=== PATIENT | female | born 1950 | race Caucasian/White ===

== ENCOUNTER 2023-10-08 22:01 | Inpatient (IN) | payer BC, MEDICARE, SELFPAY ==
[2023-10-08 19:51] VITALS: BP 105/51
[2023-10-08 19:58] LABS: % Basophils 0.2 % (0-2); % Eosinophils 0.2 % (0-6); % Immature Granulocytes 0.7 % (0-0.5); % Lymphocytes 3.4 % (20.5-51.1); % Monocytes 9.7 % (1.7-9.3); % Neutrophils 85.8 % (42.2-75.2); Absolute Basophils 0.1 10^3/uL (0-0.2); Absolute Eosinophils 0.1 10^3/uL (0-0.7); Absolute Immature Granulocytes 0.2 10^3/uL (0-0.05); Absolute Lymphocytes 0.8 10^3/uL (1.2-3.4); Absolute Monocytes 2.2 10^3/uL (0.1-0.6); Absolute Neutrophils 19.1 10^3/uL (1.4-6.5); Hematocrit 39.4 % (37.0-47.0); Hemoglobin 13.6 g/dL (12.0-16.0); Mean Corp Hgb Conc. 34.5 g/dL (33.0-37.0); Mean Corpuscular Hgb 29.2 pg (27.0-31.0); Mean Corpuscular Volume 84.5 fL (81.0-99.0); Mean Platelet Volume 9.6 fL (7.4-10.4); Nucleated Red Blood Cells % 0 %; Platelet Count 209 10^3/uL (130-400); Red Blood Cell Count 4.66 10^6/uL (4.20-5.40); Red Cell Dist. Width 13.6 % (11.5-14.5); White Blood Cell Count 22.2 10^3/uL (4.8-10.8)
[2023-10-08 19:59] LABS: Urine Albumin 1+ (Neg - Trace); Urine Bilirubin Negative (Negative); Urine Character Clear (Clear); Urine Color Yellow; Urine Glucose Trace (Negative); Urine Ketone Trace (Negative); Urine Leukocyte Trace (Negative); Urine Nitrite Negative (Negative); Urine Occult Blood 2+ (Negative); Urine Urobilinogen Negative (Neg - 1+)
[2023-10-08 20:00] VITALS: BP 107/60
[2023-10-08 20:09] LABS: Glucose - Point of Care 137 mg/dl (70-99)
[2023-10-08 20:11] LABS: Lactic Acid 1.6 mmol/L (0.7-2.0)
[2023-10-08 20:12] LABS: Urine Hyaline Cast 0-2 /LPF (0-2); Urine Mucus Many
[2023-10-08 20:13] LABS: Urine Bacteria Few (Negative)
[2023-10-08 20:15] LABS: ALT (SGPT) 35 U/L (0-35); AST (SGOT) 65 U/L (14-36); Albumin 4.3 g/dl (3.5-5.0); Alkaline Phosphatase 109 U/L (38-126); Blood Urea Nitrogen 34 mg/dl (7-17); Calcium 9.4 mg/dl (8.4-10.2); Carbon Dioxide 24 mmol/L (22-30); Chloride 107 mmol/L (98-107); Creatine Phosphokinase 949 U/L (30-135); Glucose 152 mg/dl (70-99); Potassium 3.8 mmol/L (3.5-5.1); Sodium 140 mmol/L (135-145); Total Bilirubin 0.5 mg/dl (0.2-1.3); Total Protein 6.8 g/dl (6.3-8.2)
[2023-10-08] MEDS: NSS 2000 IV (20:16)
--- NOTE | 2023-10-08 20:20 | ED.GENMED ---
History of Present Illness
General
Chief Complaint: Fall
Source: patient and spouse
Exam Limitations: none
Time Seen by Provider: 10/08/23 19:54
Nursing documentation reviewed up to this point in time: agreed with
History of Present Illness
History of Present Illness:
72-year-old female accompanied by her Dr. Stoddard, patient suffers from MS, on Copaxone, has some lower extremity weakness chronically but functions very well, drinks socially not excess, left for work around 7 AM, he returned to
work found his spouse lying supine covered in dirt ants & leaves, sunburned , possibly had been there since as early as 7 AM but likely later in the day
Possibility that she could have fallen down 3 steps unconfirmed
Here she follows simple commands opens her eyes to deep stimulation
Past History
Past History
ED Past Medical History: Other (MS) and Other (Osteoarthritis)
ED Past Surgical History: None
Social History
Tobacco: Non-smoker
Alcohol: None
Drug: None
Personal:
Living: with family
Phy Exam
Physical Exam
Physical Exam:
Physical Exam
General: Chronically ill female with decreased responsiveness
Neck: Lips are slightly dry no tongue bite
Heart: Regular
Lungs: no acute respiratory distress. clear bilaterally
Abdomen: Nontender
Neuro: Responds to painful stimuli moaning
Skin: Warm sunburn
Psychiatric: Unable to assess
Extremities: no edema.
Course
Orders/Labs/Results
Orders:
Orders
10/08/23 19:46
Electrocardiogram (*1) Urgent
Reason for Study: Other
Other Reason for Exam: fall
EKG- Treatment ONCE
10/08/23 19:47
CPK [Creatine Phosphokinase] Urgent
Complete Blood Count/With Diff Urgent
Comprehensive Metabolic Panel Urgent
TSH Urgent
Comment: ADD ON
Urinalysis Reflex To Culture Urgent
Date Specimen was Collected: 10/08/23
Time Specimen was Collected: 19:45
Urine Microscopic Reflex Cult Urgent
10/08/23 19:51
Lactic Acid Urgent
10/08/23 20:11
CT Cervical Spine W/o Iv Contr Urgent
Comment:
Reason For Exam: fall
CT Head W/o Iv Contrast Urgent
Comment:
Reason For Exam: fall
Cardiac Monitoring- Treatment ONCE
10/08/23 20:12
0.9% Sodium Chloride 1000 ml [Nss] 2,000 ml IV BOLUS
10/08/23 20:14
Add On- LAB Urgent
Tests Added?: tsh
Rectal Temp- Treatment ONCE
Abnormal Lab Results
10/08/23 10/08/23
19:47 20:08
WBC 22.2 H 10^3/uL
(4.8-10.8)
Abs Immat Gran (auto) 0.2 H 10^3/uL
(0-0.05)
Absolute Neuts (auto) 19.1 H 10^3/uL
(1.4-6.5)
Absolute Lymphs (auto) 0.8 L 10^3/uL
(1.2-3.4)
Absolute Monos (auto) 2.2 H 10^3/uL
(0.1-0.6)
Immature Gran % 0.7 H %
(0-0.5)
Neutrophils % 85.8 H %
(42.2-75.2)
Lymphocytes % 3.4 L %
(20.5-51.1)
Monocytes % 9.7 H %
(1.7-9.3)
BUN 34 H mg/dl
(7-17)
Creatinine 1.2 H mg/dL
(0.6-1.0)
Glucose 152 H mg/dl
(70-99)
AST 65 H U/L
(14-36)
Creatine Kinase 949 H U/L
(30-135)
Urine Ketones Trace A
(Negative)
Ur Occult Blood Reflex 2+ A
(Negative)
Leukocyte Esterase Rfl Trace A
(Negative)
Urine RBC 3-6 A /HPF
(0-2)
Urine Bacteria (Reflex) Few A
(Negative)
Urine Glucose Trace A
(Negative)
Urine Albumin (Reflex) 1+ A
(Neg - Trace)
POC Glucose 137 H mg/dl
(70-99)
10/08/23 19:47
10/08/23 19:47
Vital Signs
Initial and Last Documented VS:
Initial Vital Signs
Pulse Resp
97 22
10/08/23 19:48 10/08/23 19:48
Last Documented Vital Signs
Temp Pulse Resp BP Pulse Ox
99.5 F 94 18 107/60 97
10/08/23 20:14 10/08/23 20:00 10/08/23 20:00 10/08/23 20:00 10/08/23 20:00
MDM/Problems Addressed
Differential Diagnosis Includes:
Dehydration intracerebral hemorrhage toxic metabolic UTI rhabdo
MDM/Problems Addressed:
Mental status change
Chronic conditions affecting care: Neurological disorder
Acute Exacerbation and/or Progression of Chronic Illness: Neurological disorder
*EKG
Interpreted by ED Provider?: Yes
Interpretation: abnormal
Comparison EKG: no comparison EKG present
Heart Rate: 78
Rate: normal
Rhythm: sinus
Ischemia: non-specific ST changes
*Advertising Coordinator Interpretation
Rate: normal
Interpretation: normal
Heart Rate: 78
Rhythm: sinus
*Critical Care Note
Total Time (30-74mins, 75-104mins- exclusive of procedures): Not Applicable
Data Reviewed
Source: spouse
Update Note
Update Note:
Update labs noted CT noted reports pending patient is more alert from when she presented, spouse states she was nonverbal when he found her passed out on the patio, hopefully her mental status will improve with IV fluids,
ED Attending Note
-
Portions of this chart may have been created with voice recognition software.� Occasional wrong word or��sound alike� substitutions may have occurred due to the inherent limitations of voice recognition software.
Discharge Plan
Departure
Patient Disposition: Admit
Date of Disposition: 10/08/23
Time of Disposition: 21:13
Admit to: Telemetry
Presentation/result/management discussed w/ accepting MD/DO: Hospitalist
Patient with high blood pressure during this ER visit?: No
Condition: Fair
Covid-19: Not Applicable
Discharge Problem:
Rhabdomyolysis, Fall, Multiple sclerosis
Prescriptions:
No Action
cyanocobalamin (vitamin B-12) 1,000 mcg Tablet
2,000 mcg PO DAILY
baclofen 20 mg Tablet
20 mg PO HS
dalfampridine 10 mg Tablet Extended Release 12 Hr
10 mg PO BID
glatiramer [Copaxone] 40 mg/mL Syringe
40 mg SC MOWEFR
Vitamin D3 tablet
1 tab PO DAILY
calcium carbonate tablet
1 tab PO DAILY
Interventions
Interventions:
*Risk Screen - Suicide Last Done: 10/08/23 19:51
*General Assessment Last Done: 10/08/23 20:23
*Neglect/Abuse Screening Last Done: 10/08/23 19:51
ED- Fall Risk Assessment Last Done: 10/08/23 19:51
*ED COVID-19 Vaccine History Last Done: 10/08/23 19:51
ED-Musculoskeletal Assessment Last Done: 10/08/23 19:51
ED- Neurological Assessment Last Done: 10/08/23 19:51
ED-Skin Assessment Last Done: 10/08/23 19:51
Discharge Date and Time
Print Language: SERBIAN
[2023-10-08 21:06] LABS: TSH 1.76 uIU/ml (0.47-4.68)
[2023-10-08 21:11] VITALS: BP 97/57
--- NOTE | 2023-10-08 21:34 | HPS.HSE ---
Addendum entered and electronically signed by Maurilio Santiago DO 10/08/23 22:17:
Patient seen and examined independently. Agree with findings an plan as set forth by Amy Baumann PA-C.
Patient is a 72y F with PMH significant for MS who presents to ED after being 'found down' at home. History obtained from patient and her at the bedside. Patient states that she became fatigued this AM while doing some gardening. She
lie down on the ground to rest and either was unable to or did not attempt to get back up. She pulled a nearby garden cart over to shade her face. Her left the home around 7AM and returned from work this evening to find patient lying on
the ground. Patient was brought to the ED for further evaluation. No reported recent illness including fevers / chills, GI or complaints.
Ass:
Found Down
Rhabdomyolysis
TIARA
Multiple Sclerosis
Plan:
Admit for further evaluation and treatment.
IVF support overnight and follow for adequate urine output, improvement in renal function and resolution of CPK elevations.
Patient denies any pain at this time.
Monitor for any new / worsening symptoms.
Hold dalfampridine pending improvement in renal function.
Continue Copaxone.
PT / OT evaluations.
Original Note:
Family Physician
-
Family Physician: NOT KNOW UNKNOWN - PT DOES
Chief Complaint
-
Fall
History of Present Illness
Patient is a 72 y/o female past medical history of multiple sclerosis who presents with following a fall. Patient was found outside on the patio by her after he returned home from work. It is unclear how long patient was outside, but she
was last seen around 7AM when the left for work. She was noted to have sunburn on her arms and legs leading to believe she was out in the sun for several hours. Upon my evaluation patient is able to answer a few questions with
single answers, but is unable to tell me how she fell. She denies hitting her head during the event.
Medical History
Past Medical History
Past Medical History: Reports Other
Additional Past Medical History:
Multiple Sclerosis
Past Surgical History: Reports
Social History
Tobacco: Non-smoker
Alcohol: Occasional
Family History
Family History: Other (Father: ESRD; Mother: Aortic Stenosis; Sister: Multiple Sclerosis)
Allergies / Home Medications
Allergies reflects when Allergies were last updated in [facility].
Home Medications with original date entered in [facility]
Allergy/Medication List:
Allergies
Allergy/AdvReac Type Severity Reaction Status Date / Time
No Known Allergies Allergy Verified 10/08/23 20:05
Home Medications
Vitamin D3 1 tab PO DAILY 10/08/23
baclofen 20 mg tablet 20 mg PO HS 10/08/23
calcium carbonate 1 tab PO DAILY 10/08/23
cyanocobalamin (vitamin B-12) 1,000 mcg tablet 2,000 mcg PO DAILY 10/08/23
dalfampridine 10 mg tablet,extended release,12 hr 10 mg PO BID 10/08/23
glatiramer 40 mg/mL subcutaneous syringe (Copaxone) 40 mg SC MOWEFR 10/08/23
Review of Systems
-
Unable to obtain full review of systems at this time due to: Acuity
Physical Exam
Vital Signs
Vital Signs
Temp Pulse Resp BP Pulse Ox
99.5 F 88 18 97/57 96
10/08/23 20:14 10/08/23 21:00 10/08/23 21:11 10/08/23 21:11 10/08/23 21:11
Physical Exam
General: Well Developed and Well Nourished
HEENT: Other (Mucous Membranes are dry )
Respiratory: Clear and Non Labored Respirations
Cardiac: S1/S2 and Regular Rhythm
GI: Soft and Non Tender
Musculoskeletal: No Clubbing, No Cyanosis and No Edema
Skin: Other (Sunburns to bilateral arms and legs)
Neuro: Other (Answers simple questions but unable to participate in full neurologic evaluation)
Psych: Calm
Laboratory Results
-
10/08/23 19:47
10/08/23 19:47
Laboratory Results
Lactic Acid 1.6 mmol/L (0.7-2.0) 10/08/23 19:51
Total Bilirubin 0.5 mg/dl (0.2-1.3) 10/08/23 19:47
AST 65 U/L (14-36) H 10/08/23 19:47
ALT 35 U/L (0-35) 10/08/23 19:47
Alkaline Phosphatase 109 U/L (38-126) 10/08/23 19:47
Data Reviewed
-
CT Scan: Report Reviewed by me (Head CT without intracranial hemorrhage or fracture)
Lab Data: Labs Reviewed by me
Impression/Plan
-
Rhabdomyolysis with Acute Kidney Injury
-Continue IVFs
-Recheck BMP and CPK in AM
Fall, unclear cause as patient unable to provide much history
-Consult PT/OT
-Monitor on Telemetry
-Consider additional work-up once patient able to provide more history
Multiple Sclerosis
-Hold meds for now and resume when able
DVT proph: SCDs
Code Status: Full Code
[2023-10-08 22:00] VITALS: BP 109/53
[2023-10-08 22:58] VITALS: BMI 23.4
[2023-10-08 23:05] VITALS: BP 146/66
[2023-10-08] MEDS: NSS 1000 IV (23:28)
--- NOTE | 2023-10-08 23:50 | PTCARENOTE ---
Pt arrived to unit from ED and was a pullover assist from stretcher into bed. Pt is verbally arousable and AAOx1 to self. Pt's Murali updated on plan of care at bedside and assisted in answering admission questions. Pt oriented to room,
call esparza within reach. Bed alarm in place under pt. VS on admission stable, NS infusing at 100 mL/hr per order. Pt denies pain at this time.
[2023-10-09] VITALS (8 sets, daily range): BP systolic 108–142; BP diastolic 48–72; PULSE 76–80; O2SAT 95
--- NOTE | 2023-10-09 06:40 | PTCARENOTE ---
Pt did not urinate during shift. This RN bladder scanned pt for 570 mL and prompted pt to void in bed morales; pt was unable to void. House ASSISTANT BASKETBALL COACH Dipak Baker notified, order placed for bladder scan and straight cath protocol. This RN straight cathed
pt for 550 mL of clear yellow urine with a 15 [place] catheter.
[2023-10-09 07:39] LABS: Hematocrit 36.8 % (37.0-47.0); Hemoglobin 12.4 g/dL (12.0-16.0); Mean Corp Hgb Conc. 33.7 g/dL (33.0-37.0); Mean Corpuscular Hgb 29.1 pg (27.0-31.0); Mean Corpuscular Volume 86.4 fL (81.0-99.0); Red Blood Cell Count 4.26 10^6/uL (4.20-5.40); Red Cell Dist. Width 13.9 % (11.5-14.5); White Blood Cell Count 15.1 10^3/uL (4.8-10.8)
[2023-10-09 07:56] LABS: Blood Urea Nitrogen 29 mg/dl (7-17); Calcium 8.1 mg/dl (8.4-10.2); Carbon Dioxide 22 mmol/L (22-30); Chloride 110 mmol/L (98-107); Estimated Creatinine Clearance 54 ml/min; Glucose 80 mg/dl (70-99); Potassium 3.8 mmol/L (3.5-5.1); Sodium 139 mmol/L (135-145); eGFR > 60.00
[2023-10-09 08:09] LABS: Mean Platelet Volume 9.7 fL (7.4-10.4); Platelet Count 117 10^3/uL (130-400)
[2023-10-09 08:13] LABS: Creatine Phosphokinase 6230 U/L (30-135)
--- NOTE | 2023-10-09 08:50 | W.PN.HOSP.TC ---
Today's Communication/Plan
-
see bold
Assessment / Plan
Assessment / Plan
HPI: 72y F with PMH significant for MS who presents to ED after being 'found down' at home. History obtained from patient and her at the bedside. Patient states that she became fatigued this AM while doing some gardening. She lie down
on the ground to rest and either was unable to or did not attempt to get back up. She pulled a nearby garden cart over to shade her face. Her left the home around 7AM and returned from work this evening to find patient lying on the ground.
Patient was brought to the ED for further evaluation. No reported recent illness including fevers / chills, GI or complaints.
Rhabdomyolysis
-CK 6230 today, increased from 949 yesterday
-Continue IVFs, trend CK
Acute kidney injury
� Resolved with IV fluids
Fall, unclear cause as patient unable to provide much history
-Likely from weakness from multiple sclerosis
-PT rec STR, pt/spouse wishes to go home
Multiple Sclerosis
-Resume meds when able
Leukocytosis
- Patient is afebrile, no signs or symptoms of infection
�Likely reactive, trend
Thrombocytopenia
-Mild, monitor
Sunburn
-Monitor
DVT proph: SQ lovenox
Code Status: Full Code
Updated on phone 10/08
Physical Exam
General: No acute distress
HEENT: Normocephalic, Atraumatic, EOMI, MMM
Respiratory: Clear to Auscultation bilaterally
Cardiac: Normal S1/S2, Regular Rate and Rhythm
GI: Soft, Nontender, Nondistended, Normal Bowel Sounds
Extremities: No Clubbing, Cyanosis, or Edema
Left leg weakness noted
Neuro: Nonfocal/Grossly Intact
Psych: Calm, Cooperative
Derm: Patches of erythema on arms/legs/torres
Total time spent to see the patient on the floor, examine the patient, review data and lab results, discuss treatment plan with patient, nursing staff around 50 minutes.
Anticipated Discharge: 24 - 48 hours
Subjective/Interval History
-
Date of Service: October 09, 2023
Patient reports being sunburn from being in the sun yesterday. She feels better today. Her left leg weakness has improved. No fever, no vomiting.
Objective Data
-
Labs:
Laboratory Results
10/09/23
07:16
WBC 15.1 H
Hgb 12.4
Hct 36.8 L
Plt Count 117 L D
Sodium 139
Potassium 3.8
Chloride 110 H
Carbon Dioxide 22
BUN 29 H
Creatinine 0.9
Glucose 80
Calcium 8.1 L
Vital Signs:
Vital Signs
Temp Pulse Resp BP Pulse Ox
98.0 F 75 16 108/56 95
10/09/23 07:29 10/09/23 07:29 10/09/23 07:29 10/09/23 07:29 10/09/23 07:29
I&O
10/08/23 10/09/23 10/10/23
06:59 06:59 06:59
Intake Total 60 / 60 1560 / 1560
Output Total 550 / 550
Balance -490 / -490 1560 / 1560
[2023-10-09] MEDS: NSS 1000 IV ×3 (10:15→23:12)
[2023-10-09 17:00] LABS: Creatine Phosphokinase 5908 U/L (30-135)
[2023-10-09] MEDS: LOVENOX 40 MG SC (17:08)
[2023-10-09 19:32] LABS: Hepatitis C Antibody Negative (Negative)
[2023-10-10 03:18] VITALS: BP 144/64
[2023-10-10] MEDS: NSS 1000 IV ×3 (05:52→20:28)
[2023-10-10 06:52] LABS: Hematocrit 32.5 % (37.0-47.0); Hemoglobin 10.9 g/dL (12.0-16.0); Mean Corp Hgb Conc. 33.5 g/dL (33.0-37.0); Mean Corpuscular Hgb 29.1 pg (27.0-31.0); Mean Corpuscular Volume 86.9 fL (81.0-99.0); Mean Platelet Volume 10.3 fL (7.4-10.4); Platelet Count 91 10^3/uL (130-400); Red Blood Cell Count 3.74 10^6/uL (4.20-5.40); Red Cell Dist. Width 13.9 % (11.5-14.5); White Blood Cell Count 12.8 10^3/uL (4.8-10.8)
[2023-10-10 07:00] VITALS: BP 136/65
[2023-10-10 07:18] LABS: Blood Urea Nitrogen 21 mg/dl (7-17); Calcium 7.7 mg/dl (8.4-10.2); Carbon Dioxide 21 mmol/L (22-30); Chloride 114 mmol/L (98-107); Estimated Creatinine Clearance 70 ml/min; Glucose 82 mg/dl (70-99); Sodium 137 mmol/L (135-145); eGFR > 60.00
[2023-10-10 07:43] LABS: Creatine Phosphokinase 4267 U/L (30-135)
--- NOTE | 2023-10-10 08:39 | W.PN.HOSP.TC ---
Addendum entered and electronically signed by Kingsley Paitno MD 10/10/23 16:06:
Stage 2 sacrum pressure injury, present upon admission.
Rhabdomyolysis is acute traumatic.
Original Note:
Today's Communication/Plan
-
see bold
Assessment / Plan
Assessment / Plan
HPI: 72y F with PMH significant for MS who presents to ED after being 'found down' at home. History obtained from patient and her at the bedside. Patient states that she became fatigued this AM while doing some gardening. She lie down
on the ground to rest and either was unable to or did not attempt to get back up. She pulled a nearby garden cart over to shade her face. Her left the home around 7AM and returned from work this evening to find patient lying on the ground.
Patient was brought to the ED for further evaluation. No reported recent illness including fevers / chills, GI or complaints.
Rhabdomyolysis
-CK 4267 today, was 6230, increased from 949 from admission
-Continue IVFs, trend CK
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
-Discussed with dermatology, start triamcinolone cream and doxycycline
-Autoimmune in nature
-Hold prednisone since patient will need outpatient biopsy
-Recommend follow-up with Derm outpatient for biopsy
Acute kidney injury
� Resolved with IV fluids
Fall, unclear cause as patient unable to provide much history
-Likely from weakness from multiple sclerosis
-PT rec STR, pt/spouse wishes to go home
Multiple Sclerosis
-Resume po meds
-C/s neurology
Leukocytosis
- Patient is afebrile, no signs or symptoms of infection
�Likely reactive, trend
Thrombocytopenia
-Patient's platelets were 209 upon admission, dropped to 117 without receiving any Lovenox
-Started on Lovenox after the initial drop. Lovenox discontinued 10/09 due to platelets further dropping to 91.
-Likely reactive, monitor
Sunburn
-Monitor, wound care
Bilateral deep tissue of the heels, present upon admission
-Offloading, wound care
DVT proph: SCDs. Discontinue Lovenox
Code Status: Full Code
Updated on phone 10/09
Total time spent to see the patient on the floor, examine the patient, review data and lab results, discuss treatment plan with patient, nursing staff around 55 minutes.
Physical Exam
General: No acute distress
HEENT: Normocephalic, Atraumatic, EOMI, MMM
Respiratory: Clear to Auscultation bilaterally
Cardiac: Normal S1/S2, Regular Rate and Rhythm
GI: Soft, Nontender, Nondistended, Normal Bowel Sounds
Extremities: No Clubbing, Cyanosis, or Edema
Left leg weakness noted
Neuro: Nonfocal/Grossly Intact
Psych: Calm, Cooperative
Derm: Patches of erythema on arms/legs/torres
Scattered blisters on her lower abdomen, bilateral groin, and legs
Bilateral deep tissue injury of the heels
Anticipated Discharge: 24 - 48 hours
Subjective/Interval History
-
Date of Service: October 10, 2023
Patient developed extensive blisters all over her groin, lower abdomen, her legs. Not itchy, nonpainful. No fever, no vomiting.
Objective Data
-
Labs:
Laboratory Results
10/10/23
06:31
WBC 12.8 H
Hgb 10.9 L
Hct 32.5 L
Plt Count 91 L D
Sodium 137
Potassium 4.0
Chloride 114 H
Carbon Dioxide 21 L
BUN 21 H
Creatinine 0.7
Glucose 82
Calcium 7.7 L
Vital Signs:
Vital Signs
Temp Pulse Resp BP Pulse Ox
98.1 F 93 18 136/65 96
10/10/23 07:00 10/10/23 07:00 10/10/23 07:00 10/10/23 07:00 10/10/23 07:00
I&O
10/09/23 10/10/23 10/11/23
06:59 06:59 06:59
Intake Total 60 / 60 4020 / 4020
Output Total 550 / 550
Balance -490 / -490 4020 / 4020
[2023-10-10 11:24] VITALS: BP 128/60
--- NOTE | 2023-10-10 11:39 | WOUNDNOTE ---
RIGHT THIGH /GROIN ABDOMEN
--- NOTE | 2023-10-10 11:40 | WOUNDNOTE ---
ABDOMEN/LEFT THIGH
--- NOTE | 2023-10-10 12:30 | CM ---
Patient seen bedside.
patient lives with spouse in a 2 story home with 1st floor set up.
patient has 2 steps to enter home.
Ambulates with cane or rollator.
patient has not had VN or skilled rehab.
patient aware of CM availability should needs arise.
PCP: Dr Chang
Pharmacy: [facility]
Plan: home with spouse.
--- NOTE | 2023-10-10 12:30 | CON.NEURO ---
Neuro Assessment/Plan
Assessment
IMPRESSIONS/RECOMMENDATIONS:
Abrupt worsening of gait dysfunction following over exposure to heat and sunlight in a patient with debility due to multiple sclerosis
Unlikely that the patient has had an exacerbation of MS other than dysfunction secondary to heat overexposure
Plan
No indication at this time the patient would benefit from MRI imaging of brain and spine
Would eventually replace glatiramer acetate with alternative as outpatient for better control over multiple sclerosis
Continue patient's usual baclofen and dalfampridine
Physical therapy evaluations
Remediation of rhabdomyolysis
Will continue to follow as needed. Thank you
Consultation
Order
Date of Consultation: 10/10/23
Requesting Provider: Hospitalist
Reason for Consult: Gait dysfunction
Subjective/Objective
Subjective Data
Date of Service: October 10, 2023
�What does a flare of MS consist of?�
Right-Handed
Began to have left check pain then diagnosed with MS unclear year of diagnosis, presumed to be ~ 1993. No significant changes in symptoms or issues since then until gait difficulty beginning 2018 leading to use of walker.
Prior medications have included interferon (Avonex) and glatiramer acetate. The patient also used alternative therapies at 1 point instead of prescription medications.
[facility] after being found down at home.
Patient reportedly was in her usual state of health until the morning of presentation to this hospital's emergency department, 1 day ago at which time the patient was described as having generalized fatigue requiring her to lie down on the ground
during a hot day.
Subsequently, patient was found to have significant renal insufficiency and rhabdomyolysis.
Objective Data
Vital Signs
Temp Pulse Resp BP Pulse Ox
36.7 C 98 18 128/60 98
10/10/23 11:24 10/10/23 11:24 10/10/23 11:24 10/10/23 11:24 10/10/23 11:24
Lab Results
10/10/23 06:31
10/10/23 06:31
Sodium 137 mmol/L (135-145) 10/10/23 06:31
Potassium 4.0 mmol/L (3.5-5.1) 10/10/23 06:31
BUN 21 mg/dl (7-17) H 10/10/23 06:31
Glucose 82 mg/dl (70-99) 10/10/23 06:31
Calcium 7.7 mg/dl (8.4-10.2) L 10/10/23 06:31
Patient Allergies
No Known Allergies Allergy (Verified 10/08/23 20:05)
Review of Systems
-
History Source: Patient and Family
All other systems: Reviewed and negative
EENT: Negative Blurry Vision or Swallowing Difficulty
Respiratory: Negative Trouble Breathing
Cardiac: Negative Chest Pain
Abdomen/GI: Negative Incontinence of Stool
Genitourinary: Incontinence
Musculoskeletal: Negative Back Pain or Neck Pain
Neuro: Negative Dizzy or Headache
Physical Exam
-
General: No Apparent Distress and Appears Stated Age
Eyes: OU Absent Papilledema, Round OU, [place] Conjunctivae and No Ptosis
HEENT: Anicteric and Moist Mucous Membranes
Neck: Full Range of Motion
Respiratory: No Dyspnea
Cardiac: No JVD
GI: Non-distended
Skin: Unremarkable
Extremities: No Clubbing, No Cyanosis and No Edema
Psych: Intact Judgement/Insight
Extended Neurological Exam
Mood & Affect: Mood Unremarkable and Affect Unremarkable
Attention Span & Concentration: Awake, Alert, Interactive and Mild Difficulty with 2 Step Request
Memory: Reduced (Due to bradyphrenia)
Tremor: Hand Tremor Absent and Head Tremor Absent
Speech: Quality Unremarkable and Quantity Unremarkable
Cranial Nerve II: Left Eye: Pupillary Reactivity Unremarkable, Pupillary Size Unremarkable and Visual Fatima Grossly Intact
Cranial Nerve II: Right Eye: Pupillary Reactivity Unremarkable, Pupillary Size Unremarkable and Visual Fatima Grossly Intact
Cranial Nerves III, IV, : Extraocular Movement: Extraocular Movement Full in all Directions
Cranial Nerve VII: Facial Symmetry: Normal Facial Symmetry
Cranial Nerve VIII: Hearing: Unremarkable Hearing to Normal Conversational Volume
Cranial Nerves IX, X: Palate Movement: Palate Elevation Symmetric
Cranial Nerve XI: Shoulder Shrug: Unremarkable
Cranial Nerve XII: Tongue Protusion: Midline
Muscle Strength, Overall: Reduced (Bilateral lower extremities 4+ on the right proximally and 4 out of 5 on the left proximally) and Otherwise Intact
Muscle Bulk & Tone: Bulk Unremarkable and Tone Unremarkable
Pronator Drift: No Drift in Upper Extremities
Deep Tendon Reflexes: Trace Throughout
Touch Sensation: Unremarkable
Coordination: [id number] Testing Unremarkable
Babinski Sign: Absent Bilaterally
Data Reviewed
-
CT Head: Report Reviewed
Labs: Report Reviewed
Reviewed with: Physician, Patient and Family
Old Records: Summarized
Medications
-
Active Medications
Generic Name Dose Route Start Last Admin
Trade Name Freq PRN Reason Stop Dose Admin
Acetaminophen 650 mg 10/08/23 22:36
Acetaminophen 325 Mg Tablet PO 11/05/23 22:35
Q4HPRN PRN
mild pain/ fever>100.5F
Sodium Chloride 1,000 mls @ 150 mls/hr 10/08/23 22:36 10/10/23 05:52
Nss IV 1,000 mls
.Q6H40M KARIME Administration
Ondansetron HCl 4 mg 10/09/23 08:53
Ondansetron 4 Mg/2 Ml Vial IV 11/06/23 08:52
Q6HPRN PRN
NAUSEA/VOMITING
Sodium Chloride 0 flush 10/08/23 22:00
Sodium Chloride 0.9% (Flush) Syringe IV 11/05/23 21:59
PER PROTOCOL KARIME
Home Medications
�Medication �Instructions �Recorded
Vitamin D3 1 tab PO DAILY Supplement 10/08/23
baclofen 20 mg tablet 20 mg PO HS Muscle Spasms 10/08/23
calcium carbonate 1 tab PO DAILY Supplement 10/08/23
cyanocobalamin (vitamin B-12) 2,000 mcg PO DAILY Supplement 10/08/23
1,000 mcg tablet
dalfampridine 10 mg 10 mg PO BID Multiple Sclerosis 10/08/23
tablet,extended release,12 hr
glatiramer 40 mg/mL subcutaneous 40 mg SC MOWEFR Multiple Sclerosis 10/08/23
syringe (Copaxone)
Past History
Past History
ED Past Medical History: Other (MS, Osteoarthritis)
ED Past Surgical History:
Social History
Tobacco: Non-smoker
Alcohol: None
Drug: None
Personal:
Living: with family
Family History
Family History: Other (reviewed and non-contributory)
--- NOTE | 2023-10-10 13:09 | WOUNDNOTE ---
WO RN note: Patient admitted with s/p fall at home. Patient reports lying on ground for about 4 hours s/p falls. She was admitted with TIARA and rhabdomyolysis.
See H&P for complete history.
PMH:
Wound Location and type/assessment: Patient admitted with serous blisters/bullae of right leg, groin, thighs and abdomen. The blisters/bullae are surrounded by darkened, non-blanchable skin. She is unable to report how long she has these skin
changes, and is also not certain. She denies pain or itching. She was also admitted with DTI on bilateral heels and stage 2 of sacrum. Patient demonstrated ability to turn with minimal assistance and ambulates with rolling walker at home.
Appetite: Reports good, ate 100% of breakfast.
Pressure redistribution devices in place: Recommend static air overlay if patient is not changing position frequently. She declines use of fiber-filled boots and prefers to keep heels off-loaded on pillows.
Plan: TT pics to Dr. Patino and reported that blisters/bullae appear to be possible bullous pemphigoid. Dr. Patino and also made aware of DTI of heels. This technical writer and editor explained to and patient that heel wounds are evolving and may worsen.
Sure-prep and adhesive foam applied to heels. May use hydrogel to any open areas on groin, thigh, abdomen or legs that appear dry. Any open areas may be cleaned with Vashe. Blisters should be kept intact and may be covered with ABD and secured with
silicone tape if they being to ooze or open. RN Will given update.
Will confirm orders with hospitalist and update nurse.
Updated care plan and will follow as needed.
Recommend follow up at wound care center upon discharge.
[2023-10-10 13:12] LABS: Albumin 2.8 g/dl (3.5-5.0)
--- NOTE | 2023-10-10 14:42 | PN.CDI ---
CDI
- -
CDI:
Physician Documentation Request
Admit Date: 10/08/23 22:01
Dear Doctor Do,
Please review the following and provide your response in the progress notes.
Clinical Indicators:
- 10/08 PN 'Rhabdomyolysis' without specificity
- ' lie down on the ground to rest and either was unable to or did not attempt to get back up'
- 10/07 H&P '...found his spouse lying supine covered in dirt ants & leaves, sunburned , possibly had been there since as early as 7 AM'
Laboratory Tests
10/08/23 10/09/23 10/10/23
19:47 07:16 06:31
Creatine Kinase 949 H 6230 H D 4267 H
Please clarify the diagnosis with the above findings:
Traumatic rhabdomyolysis
Non traumatic rhabdomyolysis
Other
Use of terms such as suspected, likely, concern for, or probable (associated with a specific diagnosis that is being evaluated, monitored, or treated as if it exists) are acceptable and can be coded in the inpatient setting, when documented at the
time of discharge.
Thank you,
Lakhwinder George RN
CDI Specialist
Please use your independent medical judgment in providing your response.
[2023-10-10 15:00] VITALS: BP 163/83
[2023-10-10] MEDS: NON-FORMULARY ITEM 10 MG PO (15:11)
[2023-10-10] MEDS: TRIAMCINOLONE 0.1% OINTMENT 1 APPLIC TOPICAL ×3 (15:12→22:35)
[2023-10-10] MEDS: OSCAL CAL 500 500 MG PO (15:12)
[2023-10-10] MEDS: VITAMIN D3 (cholecalciferol) 10 MCG PO (15:12)
[2023-10-10] MEDS: VIBRAMYCIN 100 MG PO ×2 (15:17→20:29)
--- NOTE | 2023-10-10 15:19 | PN.CDI ---
CDI
- -
CDI:
Physician Documentation Request
Admit Date: 10/08/23 22:01
Dear Doctor Do,
Please review the following and provide your response in the progress notes.
Clinical Indicators:
- 10/09 Wound note indicates Stage 2 sacrum pressure injury, POA
Physician documentation of the type and location of wounds is required for compliant documentation. Based on the above clinical findings and your assessment, please provide the following in your progress note:
1. Location of the ulcer/wound, including laterality.
2. Type (etiology) of ulcer/wound:
- Diabetic ulcer
- Arterial (ischemic) ulcer
- Traumatic wound
- Venous stasis ulcer
- Pressure (decubitus) ulcer
- Non-healing surgical wound
- Other
- Unable to determine
Use of terms such as suspected, likely, concern for, or probable (associated with a specific diagnosis that is being evaluated, monitored, or treated as if it exists) are acceptable and can be coded in the inpatient setting, when documented at the
time of discharge.
Thank you,
Lakhwinder George RN
CDI Specialist
Please use your independent medical judgment in providing your response.
*Source: National Pressure Ulcer Advisory Panel (NPUAP)
[2023-10-10] MEDS: NON-FORMULARY ITEM 40 MG SC (17:26)
--- NOTE | 2023-10-10 19:02 | PTCARENOTE ---
At 1700, Pt Amelia Stoddard slid down onto the floor, unwitnessed. She was found on her stomach on the floor. She stated that she lowered herself onto the bed morales that she lowered to the floor from the window sill. She successfully used the bed morales
but was unable to get back into bed. In getting off the bed morales she lowered herself ont her stomach on the floor where I found her. The bed morales was next to her with feces and urine in it. Staff got her rolled over and lifted her into the bed.
[2023-10-10 19:43] VITALS: BP 140/68
[2023-10-10] MEDS: LIORESAL 20 MG PO (20:32)
[2023-10-10] MEDS: NON-FORMULARY ITEM PO (21:12)
--- NOTE | 2023-10-10 21:12 | PTCARENOTE ---
requests 2nd dose of dalfampridine be held tonight as previous dose was given at 1511.
[2023-10-10 23:00] VITALS: BP 133/70
[2023-10-11] MEDS: NSS 1000 IV ×4 (02:31→22:01)
[2023-10-11 03:18] VITALS: BP 125/69
[2023-10-11 08:00] VITALS: BP 138/82
--- NOTE | 2023-10-11 08:06 | W.PN.HOSP.TC ---
Today's Communication/Plan
-
see bold
Assessment / Plan
Assessment / Plan
HPI: 72y F with PMH significant for MS who presents to ED after being 'found down' at home. History obtained from patient and her at the bedside. Patient states that she became fatigued this AM while doing some gardening. She lie down
on the ground to rest and either was unable to or did not attempt to get back up. She pulled a nearby garden cart over to shade her face. Her left the home around 7AM and returned from work this evening to find patient lying on the ground.
Patient was brought to the ED for further evaluation. No reported recent illness including fevers / chills, GI or complaints.
Acute traumatic rhabdomyolysis
-CK 2408, was 4267, was 6230, increased from 949 from admission
-Continue IVFs, trend CK
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
-Discussed with dermatology, started triamcinolone ointment and doxycycline 10/09
-Autoimmune in nature
-No prednisone since patient will need outpatient biopsy
-Recommend follow-up with Derm outpatient for biopsy
Acute kidney injury
� Resolved with IV fluids
Fall, unclear cause as patient unable to provide much history
-Likely from weakness from multiple sclerosis
-PT rec STR, pt/spouse considering it
Multiple Sclerosis
-Appreciate neurology input, patient has a pseudo flare secondary to heat exposure
�Continue home copaxone and dalfampridine
Leukocytosis
- Patient is afebrile, no signs or symptoms of infection
�Likely reactive, trend
Thrombocytopenia
-Patient's platelets were 209 upon admission, dropped to 117 without receiving any Lovenox
-Started on Lovenox after the initial drop. Lovenox discontinued 10/09 due to platelets further dropping to 91.
-Likely reactive, monitor
Sunburn
-Monitor, wound care
Bilateral deep tissue of the heels, present upon admission
Stage 2 sacrum pressure injury, present upon admission
-Offloading, wound care
DVT proph: SCDs. Discontinue Lovenox
Code Status: Full Code
Updated on phone 10/10
Total time spent to see the patient on the floor, examine the patient, review data and lab results, discuss treatment plan with patient, nursing staff around 50 minutes.
Physical Exam
General: No acute distress
HEENT: Normocephalic, Atraumatic, EOMI, MMM
Respiratory: Clear to Auscultation bilaterally
Cardiac: Normal S1/S2, Regular Rate and Rhythm
GI: Soft, Nontender, Nondistended, Normal Bowel Sounds
Extremities: No Clubbing, Cyanosis, or Edema
Left leg weakness noted
Neuro: Nonfocal/Grossly Intact
Psych: Calm, Cooperative
Derm: Patches of erythema on arms/legs/torres
Scattered blisters on her lips, lower abdomen, bilateral groin, and legs
Stage 2 sacrum pressure injury
Bilateral deep tissue injury of the heels
Anticipated Discharge: 24 - 48 hours
Subjective/Interval History
-
Date of Service: October 10, 2023
Patient reports blisters on her lips as well. She slid to the ground yesterday while on the bed morales. No fever, no vomiting.
Objective Data
-
Labs:
Laboratory Results
10/10/23
06:31
WBC 12.8 H
Hgb 10.9 L
Hct 32.5 L
Plt Count 91 L D
Sodium 137
Potassium 4.0
Chloride 114 H
Carbon Dioxide 21 L
BUN 21 H
Creatinine 0.7
Glucose 82
Calcium 7.7 L
Vital Signs:
Vital Signs
Temp Pulse Resp BP Pulse Ox
98.8 F 109 18 163/83 96
10/10/23 15:00 10/10/23 15:00 10/10/23 15:00 10/10/23 15:00 10/10/23 15:00
I&O
10/09/23 10/10/23 10/11/23
06:59 06:59 06:59
Intake Total 60 / 60 4020 / 4020
Output Total 550 / 550
Balance -490 / -490 4020 / 4020
[2023-10-11] MEDS: VIBRAMYCIN 100 MG PO ×2 (08:10→19:51)
[2023-10-11] MEDS: OSCAL CAL 500 500 MG PO (08:10)
[2023-10-11] MEDS: VITAMIN D3 (cholecalciferol) 10 MCG PO (08:10)
[2023-10-11] MEDS: NON-FORMULARY ITEM 10 MG PO ×2 (08:10→19:51)
[2023-10-11] MEDS: VITAMIN B-12 2000 MCG PO (08:10)
[2023-10-11] MEDS: TRIAMCINOLONE 0.1% OINTMENT 1 APPLIC TOPICAL ×3 (08:11→22:01)
[2023-10-11 09:41] LABS: Hematocrit 32.9 % (37.0-47.0); Hemoglobin 10.8 g/dL (12.0-16.0); Mean Corp Hgb Conc. 32.8 g/dL (33.0-37.0); Mean Corpuscular Hgb 28.8 pg (27.0-31.0); Mean Corpuscular Volume 87.7 fL (81.0-99.0); Platelet Count 115 10^3/uL (130-400); Red Blood Cell Count 3.75 10^6/uL (4.20-5.40); Red Cell Dist. Width 14.1 % (11.5-14.5); White Blood Cell Count 10.9 10^3/uL (4.8-10.8)
[2023-10-11 11:00] VITALS: BP 145/59
[2023-10-11 11:05] LABS: Blood Urea Nitrogen 10 mg/dl (7-17); Carbon Dioxide 24 mmol/L (22-30); Chloride 112 mmol/L (98-107); Estimated Creatinine Clearance 82 ml/min; Glucose 88 mg/dl (70-99); Potassium 3.8 mmol/L (3.5-5.1); Sodium 138 mmol/L (135-145); eGFR > 60.00
[2023-10-11 11:25] LABS: Creatine Phosphokinase 2408 U/L (30-135)
[2023-10-11 11:33] VITALS: BMI 23.4
[2023-10-11 15:47] VITALS: BP 139/68
[2023-10-11 19:00] VITALS: BP 155/73
[2023-10-11] MEDS: LIORESAL 20 MG PO (19:51)
[2023-10-11 23:00] VITALS: BP 133/68
[2023-10-12 03:00] VITALS: BP 142/62
[2023-10-12] MEDS: NSS 1000 IV (05:57)
[2023-10-12 07:38] LABS: Hematocrit 30.8 % (37.0-47.0); Hemoglobin 10.3 g/dL (12.0-16.0); Mean Corp Hgb Conc. 33.4 g/dL (33.0-37.0); Mean Corpuscular Hgb 28.8 pg (27.0-31.0); Mean Platelet Volume 10.1 fL (7.4-10.4); Platelet Count 145 10^3/uL (130-400); Red Blood Cell Count 3.58 10^6/uL (4.20-5.40)
[2023-10-12 07:49] LABS: ALT (SGPT) 109 U/L (0-35); AST (SGOT) 77 U/L (14-36); Albumin 2.5 g/dl (3.5-5.0); Alkaline Phosphatase 75 U/L (38-126); Blood Urea Nitrogen 8 mg/dl (7-17); Calcium 7.8 mg/dl (8.4-10.2); Carbon Dioxide 21 mmol/L (22-30); Chloride 116 mmol/L (98-107); Creatine Phosphokinase 846 U/L (30-135); Estimated Creatinine Clearance 82 ml/min; Glucose 96 mg/dl (70-99); Potassium 3.7 mmol/L (3.5-5.1); Sodium 139 mmol/L (135-145); Total Bilirubin 0.5 mg/dl (0.2-1.3); Total Protein 4.6 g/dl (6.3-8.2); eGFR > 60.00
[2023-10-12 07:55] VITALS: BP 133/81
[2023-10-12] MEDS: VITAMIN B-12 2000 MCG PO (08:29)
[2023-10-12] MEDS: VITAMIN D3 (cholecalciferol) 10 MCG PO (08:29)
[2023-10-12] MEDS: VIBRAMYCIN 100 MG PO (08:29)
[2023-10-12] MEDS: OSCAL CAL 500 500 MG PO (08:29)
[2023-10-12] MEDS: NON-FORMULARY ITEM 10 MG PO (08:30)
[2023-10-12] MEDS: TRIAMCINOLONE 0.1% OINTMENT 1 APPLIC TOPICAL (08:30)
--- NOTE | 2023-10-12 08:33 | W.PN.HOSP.TC ---
Today's Communication/Plan
-
Discharge today
Assessment / Plan
Assessment / Plan
HPI: 72y F with PMH significant for MS who presents to ED after being 'found down' at home. History obtained from patient and her at the bedside. Patient states that she became fatigued this AM while doing some gardening. She lie down
on the ground to rest and either was unable to or did not attempt to get back up. She pulled a nearby garden cart over to shade her face. Her left the home around 7AM and returned from work this evening to find patient lying on the ground.
Patient was brought to the ED for further evaluation. No reported recent illness including fevers / chills, GI or complaints.
Acute traumatic rhabdomyolysis
-CK 846, was 2408, was 4267, was 6230, increased from 949 from admission
-Resolving with IV fluids
-Medically stable for discharge, follow-up with her PCP in 1 week
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
-Discussed with dermatology, started triamcinolone ointment and doxycycline 10/09
- wants to continue only triamcinolone ointment upon discharge. Discontinue doxycycline
-Autoimmune in nature
-No prednisone since patient will need outpatient biopsy
-Recommend follow-up with Derm outpatient for biopsy
Acute kidney injury
� Resolved with IV fluids
Fall, unclear cause as patient unable to provide much history
-Likely from weakness from multiple sclerosis
-PT rec STR, family would like to take the patient home with home PT
Multiple Sclerosis
-Appreciate neurology input, patient has a pseudo flare secondary to heat exposure
�Continue home copaxone and dalfampridine
Leukocytosis
- Patient is afebrile, no signs or symptoms of infection
�Likely reactive, resolved without antibiotics
Thrombocytopenia
-Patient's platelets were 209 upon admission, dropped to 117 without receiving any Lovenox
-Started on Lovenox after the initial drop. Lovenox discontinued 10/09 due to platelets further dropping to 91.
-Likely reactive, monitor
Sunburn
-Monitor, wound care
Bilateral deep tissue of the heels, present upon admission
Stage 2 sacrum pressure injury, present upon admission
-Offloading, wound care
Mildly elevated liver function test
-Mild, monitor
DVT proph: SCDs. Discontinued Lovenox
Code Status: Full Code
Updated on phone 10/11
Physical Exam
General: No acute distress
HEENT: Normocephalic, Atraumatic, EOMI, MMM
Respiratory: Clear to Auscultation bilaterally
Cardiac: Normal S1/S2, Regular Rate and Rhythm
GI: Soft, Nontender, Nondistended, Normal Bowel Sounds
Extremities: No Clubbing, Cyanosis, or Edema
Left leg weakness noted
Neuro: Nonfocal/Grossly Intact
Psych: Calm, Cooperative
Derm: Patches of erythema on arms/legs/torres
Scattered blisters on her lips, lower abdomen, bilateral groin, and legs
Stage 2 sacrum pressure injury
Bilateral deep tissue injury of the heels
Anticipated Discharge: Today
Subjective/Interval History
-
Date of Service: October 12, 2023
Patient denies itching, denies pain. Continues to have bilateral lower extremity weakness. No fever, no vomiting.
Objective Data
-
Labs:
Laboratory Results
10/12/23
06:17
WBC 8.0
Hgb 10.3 L
Hct 30.8 L
Plt Count 145 D
Sodium 139
Potassium 3.7
Chloride 116 H
Carbon Dioxide 21 L
BUN 8
Creatinine 0.5 L
Glucose 96
Calcium 7.8 L
Total Bilirubin 0.5
AST 77 H
ALT 109 H
Alkaline Phosphatase 75
Vital Signs:
Vital Signs
Temp Pulse Resp BP Pulse Ox
99.1 F 110 18 133/81 95
10/12/23 07:55 10/12/23 07:55 10/12/23 07:55 10/12/23 07:55 10/12/23 07:55
I&O
10/11/23 10/12/23 10/13/23
06:59 06:59 06:59
Intake Total 660 / 660 3600 / 3600
Balance 660 / 660 3600 / 3600
[2023-10-12 10:11] VITALS: BP 161/89; PULSE 90; O2SAT 97
--- NOTE | 2023-10-12 10:42 | W.DCSUMMARY ---
Discharge Summary
Discharge Data
Date of Admission: 10/08/23
Date of Discharge: 10/12/23
-
Pending Results: No
Hospital Course
Discharge diagnosis:
Acute traumatic rhabdomyolysis
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
Acute kidney injury
Mechanical fall
Multiple sclerosis with pseudo flare secondary to heat exposure
Leukocytosis, reactive
Elevated liver function test
Sunburn
Bilateral deep tissue injury of the meals, present upon admission
Stage II sacral pressure injury, present upon admission
Consults: Neurology
Head CT:
1. No CT evidence for acute intracranial hemorrhage or scalp soft tissue hematoma.
2. Severe white matter disease in the frontal and parietal lobes which has increased since 01/16/2015 and is consistent with SEVERE MULTIPLE SCLEROSIS.
3. Mild diffuse cerebral volume loss.
4. Moderate cerebellar volume loss.
Hospital course:
72-year-old female with a past medical history of multiple sclerosis was admitted for acute rhabdomyolysis after being 'found down' at home. Patient was fatigued while gardening outside. She then rested outside, and was unable to get up.
Patient was found to have acute traumatic rhabdomyolysis. Her CK upon admission was 949. Despite IV fluids, it increased to 6230 the following day. She was continued on IV fluids, her CK trended down to 846 on the day of discharge.
Patient had acute kidney injury, due to dehydration. This resolved with IV fluids.
Patient also had sunburn from being outside during the time she was down. She then developed a diffuse blistering rash, with large bullae scattered on her lower abdomen, groin, and shins. She also had blisters on her lips. They were nonpruritic,
nonpainful. The appearance is concerning for bullous pemphigoid. She was started on doxycycline and triamcinolone ointment. She needs to follow-up with dermatology in the office for biopsy. Therefore, she was not started on oral steroids.
wishes to continue only triamcinolone ointment upon discharge. Doxycycline was discontinued.
Patient also had reactive leukocytosis, that resolved.
Patient had a pseudo flare of her MS from being out in the heat. She was seen in conjunction with neurology. Neurology recommends continuing her current regimen for her MS, and follow-up with her usual neurologist in the office.
Patient was seen in conjunction with PT, who recommended short-term rehab. Family declines, they wish to take the patient home. She has been set up with home PT.
Patient's medical conditions have been optimized. She needs to follow-up with her primary care doctor in 1 week, her segment producer in 2-3 days, and her usual neurologist in 2-3 weeks.
Disposition: Home with home PT
Discharge planning: Required 50
Discharge Plan
-
Patient Disposition: Home with Home Care
Discharge Diagnosis/Procedures: Acute traumatic rhabdomyolysis, pseudo multiple sclerosis flare from the heat, blistering rash
Condition: Good
Diet: Regular
Activity: As tolerated
Activity Restrictions/Additional Instructions:
Please avoid the heat. Drink plenty of fluids.
Please follow-up with dermatology this week, your primary care doctor in 1 week, and your neurologist in the office.
Wound Care Instructions Abdomen, thigh, groin and right lower leg- May gently clean any open areas with Vashe moistened gauze and apply hydrogel PRN to dry, irritated areas. Keep blisters intact. If blisters ooze, apply ABD and silicone tape PRN.
Bilateral Heels- Apply no-sting barrier and adhesive foam to heels. Change Q 3 days and PRN if loose or soiled. Keep heels off-loaded with pillows or air cushion under calves.
Sacrum- Clean with normal saline, soap and water or Vashe. Change silicone border foam Q 3 days and PRN if loose or soiled.
Encourage frequent turning and repositioning
Consider use of alert necklace or bracelet, such as [employer]
Follow up at wound care center call for an appointment.
Referrals:
Aryan Chang MD [Family Provider] - in one week
Prescriptions:
New
triamcinolone acetonide 0.1 % Ointment
1 applic topical TID 7 Days Qty: 100 0RF
Continued
cyanocobalamin (vitamin B-12) 1,000 mcg Tablet
2,000 mcg PO DAILY
baclofen 20 mg Tablet
20 mg PO HS
dalfampridine 10 mg Tablet Extended Release 12 Hr
10 mg PO BID
glatiramer [Copaxone] 40 mg/mL Syringe
40 mg SC MOWEFR
Vitamin D3 tablet
1 tab PO DAILY
calcium carbonate tablet
1 tab PO DAILY
Discharge Orders:
Discharge Patient (As Directed); Ordered 10/12/23
Ordered By: Kingsley Patino
Discharge Date and Time
Discharge Date/Time: 10/12/23 13:23
Print Language: PORTUGUESE
--- NOTE | 2023-10-12 10:56 | CM ---
Addendum entered by Janiya Corbin 10/12/23 11:15:
Please contact Dr Stoddard cell [phone] when home services are set up.
Original Note:
Chart reviewed and spoke with spouse and plan is to home with visiting nurses. Visiting nurse options reviewed with patient and spouse and they have selected [facility]. referral sent to [facility].
Plan; Home with [facility].
[2023-10-12 11:26] VITALS: BP 165/88
[2023-10-12] MEDS: NSS IV (11:41)
== END 2023-10-12 13:23 | disposition home health service (06) | DRG 565 ==
LOC: 4 WEST ACU 22:01
PROVIDERS: Physician Assistant Medical; ADMITTING PHYSICIAN Hospitalist; ATTENDING PHYSICIAN Family Medicine; CONSULT PHYSICIAN Psychiatry & Neurology Neurology; EMERGENCY PHYSICIAN Emergency Medicine; FAMILY PHYSICIAN Internal Medicine
DX: T79.6XXA Traumatic ischemia of muscle, initial encounter (principal); L12.0 Bullous pemphigoid; N17.9 Acute kidney failure, unspecified; D69.6 Thrombocytopenia, unspecified; G35 Multiple sclerosis; L89.626 Pressure-induced deep tissue damage of left heel; L89.616 Pressure-induced deep tissue damage of right heel; L89.152 Pressure ulcer of sacral region, stage 2; E86.0 Dehydration; D72.829 Elevated white blood cell count, unspecified; L55.9 Sunburn, unspecified; R79.89 Other specified abnormal findings of blood chemistry; W19.XXXA Unspecified fall, initial encounter; Y92.007 Garden or yard of unspecified non-institutional (private) residence as the place of occurrence of the external cause; Z79.899 Other long term (current) drug therapy
CPT/HCPCS: 70450; 72125; 80048; 80053; 81003; 81015; 82040; 82550; 82962; 83605; 84443; 85025; 85027; 86803; 87070; 93005; 96360; 96361; 97163; 97166; 97530; 99285

== ENCOUNTER → 2023-11-03 12:28 | Outpatient (REF) | payer BC, MEDICARE, SELFPAY | LOC: WOUND 12:28 | PROVIDERS: ATTENDING PHYSICIAN Surgery; FAMILY PHYSICIAN Internal Medicine | DX: L89.610 Pressure ulcer of right heel, unstageable (principal); L89.620 Pressure ulcer of left heel, unstageable; L97.212 Non-pressure chronic ulcer of right calf with fat layer exposed; L97.222 Non-pressure chronic ulcer of left calf with fat layer exposed; L97.112 Non-pressure chronic ulcer of right thigh with fat layer exposed; L97.122 Non-pressure chronic ulcer of left thigh with fat layer exposed; G35 Multiple sclerosis; L12.0 Bullous pemphigoid; S31.109S Unspecified open wound of abdominal wall, unspecified quadrant without penetration into peritoneal cavity, sequela; X58.XXXS Exposure to other specified factors, sequela | CPT/HCPCS: 99204 ==

== ENCOUNTER → 2023-11-17 10:24 | Outpatient (REF) | payer BC, MEDICARE, SELFPAY | LOC: WOUND 10:24 | PROVIDERS: ATTENDING PHYSICIAN Surgery; FAMILY PHYSICIAN Internal Medicine | DX: L89.610 Pressure ulcer of right heel, unstageable (principal); L89.620 Pressure ulcer of left heel, unstageable; L97.212 Non-pressure chronic ulcer of right calf with fat layer exposed; L97.222 Non-pressure chronic ulcer of left calf with fat layer exposed; L97.112 Non-pressure chronic ulcer of right thigh with fat layer exposed; L97.122 Non-pressure chronic ulcer of left thigh with fat layer exposed; G35 Multiple sclerosis; S31.109A Unspecified open wound of abdominal wall, unspecified quadrant without penetration into peritoneal cavity, initial encounter; X58.XXXA Exposure to other specified factors, initial encounter | CPT/HCPCS: 99213 ==

== ENCOUNTER → 2023-11-24 12:53 | Outpatient (REF) | payer BC, MEDICARE, SELFPAY | LOC: WOUND 12:53 | PROVIDERS: ATTENDING PHYSICIAN Surgery; FAMILY PHYSICIAN Internal Medicine | DX: L89.610 Pressure ulcer of right heel, unstageable (principal); L89.620 Pressure ulcer of left heel, unstageable; L97.212 Non-pressure chronic ulcer of right calf with fat layer exposed; L97.222 Non-pressure chronic ulcer of left calf with fat layer exposed; L97.112 Non-pressure chronic ulcer of right thigh with fat layer exposed; L97.122 Non-pressure chronic ulcer of left thigh with fat layer exposed; S31.109A Unspecified open wound of abdominal wall, unspecified quadrant without penetration into peritoneal cavity, initial encounter; G35 Multiple sclerosis; X58.XXXA Exposure to other specified factors, initial encounter | CPT/HCPCS: 97597 ==

== ENCOUNTER → 2023-12-02 11:07 | Outpatient (REF) | payer BC, MEDICARE, SELFPAY | LOC: WOUND 11:07 | PROVIDERS: ATTENDING PHYSICIAN Surgery; FAMILY PHYSICIAN Internal Medicine | DX: L89.610 Pressure ulcer of right heel, unstageable (principal); L89.620 Pressure ulcer of left heel, unstageable; L97.212 Non-pressure chronic ulcer of right calf with fat layer exposed; L97.222 Non-pressure chronic ulcer of left calf with fat layer exposed; L97.112 Non-pressure chronic ulcer of right thigh with fat layer exposed; S31.109A Unspecified open wound of abdominal wall, unspecified quadrant without penetration into peritoneal cavity, initial encounter; G35 Multiple sclerosis; X58.XXXA Exposure to other specified factors, initial encounter | CPT/HCPCS: 11042 ==

== ENCOUNTER → 2023-12-12 11:08 | Outpatient (REF) | payer BC, MEDICARE, SELFPAY | LOC: WOUND 11:08 | PROVIDERS: ATTENDING PHYSICIAN Surgery; FAMILY PHYSICIAN Internal Medicine | DX: L89.610 Pressure ulcer of right heel, unstageable (principal); L89.620 Pressure ulcer of left heel, unstageable; L97.212 Non-pressure chronic ulcer of right calf with fat layer exposed; L97.222 Non-pressure chronic ulcer of left calf with fat layer exposed; L97.112 Non-pressure chronic ulcer of right thigh with fat layer exposed; L97.122 Non-pressure chronic ulcer of left thigh with fat layer exposed; S31.109S Unspecified open wound of abdominal wall, unspecified quadrant without penetration into peritoneal cavity, sequela; X58.XXXS Exposure to other specified factors, sequela; G35 Multiple sclerosis | CPT/HCPCS: 99213 ==

== ENCOUNTER → 2023-12-19 11:05 | Outpatient (REF) | payer BC, MEDICARE, SELFPAY | LOC: WOUND 11:05 | PROVIDERS: ATTENDING PHYSICIAN Surgery; FAMILY PHYSICIAN Internal Medicine | DX: L89.610 Pressure ulcer of right heel, unstageable (principal); L89.620 Pressure ulcer of left heel, unstageable; L97.212 Non-pressure chronic ulcer of right calf with fat layer exposed; L97.222 Non-pressure chronic ulcer of left calf with fat layer exposed; L97.122 Non-pressure chronic ulcer of left thigh with fat layer exposed; G35 Multiple sclerosis; S31.109A Unspecified open wound of abdominal wall, unspecified quadrant without penetration into peritoneal cavity, initial encounter; X58.XXXA Exposure to other specified factors, initial encounter; L97.112 Non-pressure chronic ulcer of right thigh with fat layer exposed | CPT/HCPCS: 99213 ==

== ENCOUNTER → 2023-12-25 10:59 | Outpatient (REF) | payer BC, MEDICARE, SELFPAY | LOC: WOUND 10:59 | PROVIDERS: ATTENDING PHYSICIAN Surgery; FAMILY PHYSICIAN Internal Medicine | DX: L89.610 Pressure ulcer of right heel, unstageable (principal); L89.620 Pressure ulcer of left heel, unstageable; L97.222 Non-pressure chronic ulcer of left calf with fat layer exposed; L97.112 Non-pressure chronic ulcer of right thigh with fat layer exposed; L97.122 Non-pressure chronic ulcer of left thigh with fat layer exposed; S31.109A Unspecified open wound of abdominal wall, unspecified quadrant without penetration into peritoneal cavity, initial encounter; G35 Multiple sclerosis; X58.XXXA Exposure to other specified factors, initial encounter | CPT/HCPCS: 11042; 11045; 17250 ==

== ENCOUNTER → 2024-01-02 11:06 | Outpatient (REF) | payer BC, MEDICARE, SELFPAY | LOC: WOUND 11:06 | PROVIDERS: ATTENDING PHYSICIAN Surgery; FAMILY PHYSICIAN Internal Medicine | DX: L89.610 Pressure ulcer of right heel, unstageable (principal); L89.620 Pressure ulcer of left heel, unstageable; L97.212 Non-pressure chronic ulcer of right calf with fat layer exposed; L97.222 Non-pressure chronic ulcer of left calf with fat layer exposed; L97.112 Non-pressure chronic ulcer of right thigh with fat layer exposed; L97.122 Non-pressure chronic ulcer of left thigh with fat layer exposed; G35 Multiple sclerosis; S31.109A Unspecified open wound of abdominal wall, unspecified quadrant without penetration into peritoneal cavity, initial encounter; W19.XXXA Unspecified fall, initial encounter | CPT/HCPCS: 99213 ==

== ENCOUNTER → 2024-01-12 10:51 | Outpatient (REF) | payer BC, MEDICARE, SELFPAY | LOC: WOUND 10:51 | PROVIDERS: ATTENDING PHYSICIAN Surgery; FAMILY PHYSICIAN Internal Medicine | DX: L97.212 Non-pressure chronic ulcer of right calf with fat layer exposed (principal); L97.222 Non-pressure chronic ulcer of left calf with fat layer exposed; G35 Multiple sclerosis | CPT/HCPCS: 11042; 11045; 97597 ==

== ENCOUNTER → 2024-01-19 11:04 | Outpatient (REF) | payer BC, SELFPAY | LOC: WOUND 11:04 | PROVIDERS: ATTENDING PHYSICIAN Surgery | DX: L97.212 Non-pressure chronic ulcer of right calf with fat layer exposed (principal); L97.222 Non-pressure chronic ulcer of left calf with fat layer exposed; G35 Multiple sclerosis | CPT/HCPCS: 99213 ==

== ENCOUNTER → 2024-01-26 11:09 | Outpatient (REF) | payer BC, SELFPAY | LOC: WOUND 11:09 | PROVIDERS: ATTENDING PHYSICIAN Surgery; FAMILY PHYSICIAN Internal Medicine | DX: L97.212 Non-pressure chronic ulcer of right calf with fat layer exposed (principal); L97.222 Non-pressure chronic ulcer of left calf with fat layer exposed; G35 Multiple sclerosis | CPT/HCPCS: 99213 ==

== ENCOUNTER → 2024-02-02 11:24 | Outpatient (REF) | payer BC, SELFPAY | LOC: WOUND 11:24 | PROVIDERS: ATTENDING PHYSICIAN Surgery; FAMILY PHYSICIAN Internal Medicine | DX: L97.212 Non-pressure chronic ulcer of right calf with fat layer exposed (principal); L97.222 Non-pressure chronic ulcer of left calf with fat layer exposed; G35 Multiple sclerosis | CPT/HCPCS: 99213 ==

== ENCOUNTER → 2024-02-20 11:09 | Outpatient (REF) | payer BC, SELFPAY | LOC: WOUND 11:09 | PROVIDERS: ATTENDING PHYSICIAN Surgery; FAMILY PHYSICIAN Internal Medicine | DX: L97.212 Non-pressure chronic ulcer of right calf with fat layer exposed (principal); L97.222 Non-pressure chronic ulcer of left calf with fat layer exposed; G35 Multiple sclerosis | CPT/HCPCS: 11042; 11045 ==

== ENCOUNTER → 2024-02-27 14:07 | Outpatient (REF) | payer BC, SELFPAY | LOC: WOUND 14:07 | PROVIDERS: ATTENDING PHYSICIAN Surgery; FAMILY PHYSICIAN Internal Medicine | DX: L97.212 Non-pressure chronic ulcer of right calf with fat layer exposed (principal); G35 Multiple sclerosis | CPT/HCPCS: 11042; 11045 ==

== ENCOUNTER → 2024-03-15 11:18 | Outpatient (REF) | payer BC, SELFPAY | LOC: WOUND 11:18 | PROVIDERS: ATTENDING PHYSICIAN Surgery; FAMILY PHYSICIAN Internal Medicine | DX: L97.212 Non-pressure chronic ulcer of right calf with fat layer exposed (principal); G35 Multiple sclerosis; L03.115 Cellulitis of right lower limb | CPT/HCPCS: 11042; 11045 ==

== ENCOUNTER → 2024-03-22 09:50 | Outpatient (REF) | payer BC, SELFPAY | LOC: WOUND 09:50 | PROVIDERS: ATTENDING PHYSICIAN Surgery; FAMILY PHYSICIAN Internal Medicine | DX: L97.212 Non-pressure chronic ulcer of right calf with fat layer exposed (principal); G35 Multiple sclerosis; L03.115 Cellulitis of right lower limb | CPT/HCPCS: 11042; 11045 ==

== ENCOUNTER → 2024-04-05 11:17 | Outpatient (REF) | payer BC, SELFPAY | LOC: WOUND 11:17 | PROVIDERS: ATTENDING PHYSICIAN Surgery; FAMILY PHYSICIAN Internal Medicine | DX: L97.212 Non-pressure chronic ulcer of right calf with fat layer exposed (principal); G35 Multiple sclerosis; L03.115 Cellulitis of right lower limb | CPT/HCPCS: 11042; 11045 ==

== ENCOUNTER → 2024-04-16 10:04 | Outpatient (REF) | payer BC, SELFPAY | LOC: WOUND 10:04 | PROVIDERS: ATTENDING PHYSICIAN Surgery; FAMILY PHYSICIAN Internal Medicine | DX: L97.212 Non-pressure chronic ulcer of right calf with fat layer exposed (principal); G35 Multiple sclerosis; L03.115 Cellulitis of right lower limb | CPT/HCPCS: 97597; 97598 ==

== ENCOUNTER → 2024-04-30 11:05 | Outpatient (REF) | payer BC, SELFPAY | LOC: WOUND 11:05 | PROVIDERS: ATTENDING PHYSICIAN Surgery; FAMILY PHYSICIAN Internal Medicine | DX: L97.212 Non-pressure chronic ulcer of right calf with fat layer exposed (principal); G35 Multiple sclerosis; L03.115 Cellulitis of right lower limb | CPT/HCPCS: 99213 ==

== ENCOUNTER → 2024-05-28 08:59 | Outpatient (REF) | payer BC, SELFPAY | LOC: WOUND 08:59 | PROVIDERS: ATTENDING PHYSICIAN Surgery; FAMILY PHYSICIAN Internal Medicine | DX: L97.212 Non-pressure chronic ulcer of right calf with fat layer exposed (principal); G35 Multiple sclerosis; L03.115 Cellulitis of right lower limb | CPT/HCPCS: 99213 ==

== ENCOUNTER → 2024-06-14 10:37 | Outpatient (REF) | payer BC, SELFPAY | LOC: WOUND 10:37 | PROVIDERS: ATTENDING PHYSICIAN Surgery; FAMILY PHYSICIAN Internal Medicine | DX: L97.212 Non-pressure chronic ulcer of right calf with fat layer exposed (principal); G35 Multiple sclerosis; L03.115 Cellulitis of right lower limb | CPT/HCPCS: 97597 ==

== ENCOUNTER → 2024-06-28 11:13 | Outpatient (REF) | payer BC, SELFPAY | LOC: WOUND 11:13 | PROVIDERS: ATTENDING PHYSICIAN Surgery; FAMILY PHYSICIAN Internal Medicine | DX: L97.212 Non-pressure chronic ulcer of right calf with fat layer exposed (principal); G35 Multiple sclerosis; L03.115 Cellulitis of right lower limb | CPT/HCPCS: 99213 ==

== ENCOUNTER → 2024-07-19 11:09 | Outpatient (REF) | payer BC, SELFPAY | LOC: WOUND 11:09 | PROVIDERS: ATTENDING PHYSICIAN Surgery; FAMILY PHYSICIAN Internal Medicine | DX: L97.212 Non-pressure chronic ulcer of right calf with fat layer exposed (principal); G35 Multiple sclerosis; L03.115 Cellulitis of right lower limb | CPT/HCPCS: 99212 ==

== ENCOUNTER → 2025-03-11 12:39 | Outpatient (REF) | payer BC, SELFPAY | LOC: WDC 12:39 | PROVIDERS: ATTENDING PHYSICIAN Obstetrics & Gynecology; REFERRING PHYSICIAN Internal Medicine Endocrinology, Diabetes & Metabolism | DX: Z12.31 Encounter for screening mammogram for malignant neoplasm of breast (principal) | CPT/HCPCS: 77063; 77067 ==

== ENCOUNTER 2025-03-23 17:01 | Outpatient (RCR) | payer BC, SELFPAY | END 2025-04-06 23:59 | disposition home or self-care (01) | LOC: RPT 17:01 | PROVIDERS: ATTENDING PHYSICIAN Psychiatry & Neurology Neurology; FAMILY PHYSICIAN Internal Medicine | DX: G35.D Multiple sclerosis, unspecified (principal); Z73.6 Limitation of activities due to disability; R26.2 Difficulty in walking, not elsewhere classified; R26.89 Other abnormalities of gait and mobility | CPT/HCPCS: 97110; 97162 ==